=== PATIENT | male | born 1995 | race Hispanic/Latino ===

== ENCOUNTER 2021-05-31 14:11 | Emergency (ER) | payer OTHER ==
[~2021-05-31] VITALS: Ht 162.6 cm; Wt 82.0 kg
[2021-05-31 15:47] VITALS: BP 118/78
== END 2021-05-31 16:00 | disposition home or self-care (01) | DRG 605 ==
LOC: ED 14:11 → EDBD 14:11 → ED 15:43
PROC: 0HQGXZZ Repair Left Hand Skin, External Approach (ICD-10-PCS; principal; 2021-05-31)
DX: S61.211A Laceration without foreign body of left index finger without damage to nail, initial encounter (principal); S61.012A Laceration without foreign body of left thumb without damage to nail, initial encounter; W27.1XXA Contact with garden tool, initial encounter; Y93.H9 Activity, other involving exterior property and land maintenance, building and construction; Y92.73 Farm field as the place of occurrence of the external cause; Y99.0 Civilian activity done for income or pay